=== PATIENT | male | born 1960 | race Caucasian/White ===

== ENCOUNTER 2023-06-08 13:00 | Outpatient (CLI) | payer BC | END 2023-06-08 13:01 | disposition home or self-care (01) | LOC: BICRAD 13:00 | PROVIDERS: ATTEND Student in an Organized Health Care Education/Training Program | DX: M25.551 Pain in right hip (principal); M54.50 Low back pain, unspecified; M41.9 Scoliosis, unspecified; M47.816 Spondylosis without myelopathy or radiculopathy, lumbar region; M16.11 Unilateral primary osteoarthritis, right hip; M25.78 Osteophyte, vertebrae; M51.36 Other intervertebral disc degeneration, lumbar region | CPT/HCPCS: 72100 ==

== ENCOUNTER 2023-06-15 14:47 | Outpatient (CLI) | payer BC ==
[2023-06-15 15:49] LABS: Anion Gap 14 mmol/L (10-20); BUN (Urea Nitrogen) 16 mg/dL (8.4-25.7); Calc. Creatinine Clearance 0 mL/min (70-130); Calcium 9.4 mg/dL (7.8-10.44); Carbon Dioxide 28 mmol/L (22-29); Chloride 103 mmol/L (98-107); Estimated GFR 75; Glucose 131 mg/dL (70-105); Potassium 4.5 mmol/L (3.5-5.1); Sodium 140 mmol/L (136-145)
[2023-06-15 16:01] LABS: #Basophils 0.1 10x3/uL (0.0-0.2); #Eosinphils 0.2 10x3/uL (0.0-0.5); #Monocytes 0.7 10x3/uL (0.0-1.1); #Neutrophils 2.6 10x3/uL (1.5-8.4); %Basophils 1.7 % (0.0-2.0); %Eosinophils 3.2 % (0.0-6.0); %Lymphocytes 31.8 % (18.0-47.0); %Monocytes 13.5 % (0.0-10.0); %Neutrophils 49.6 % (40.0-75.0); Hematocrit 47.1 % (38.8-50.0); Mean Corpuscular Hemoglobin 29.3 pg (27.0-33.0); Mean Corpuscular Volume 86.1 fl (81.2-95.1); Mean Platelet Volume 9.9 fl (7.4-10.4); Platelet Count 285 10x3/uL (150-450); RBC Distribution Width 13.1 % (11.5-14.5); Red Blood Cell (RBC) Count 5.47 10x6/uL (4.32-5.72); White Blood Cell (WBC) Count 5.3 10x3/uL (3.5-10.5)
== END 2023-06-15 14:48 | disposition home or self-care (01) ==
LOC: LABBT 14:47
PROVIDERS: ATTEND Surgery
DX: Z01.818 Encounter for other preprocedural examination (principal); K42.9 Umbilical hernia without obstruction or gangrene
CPT/HCPCS: 80048; 85025; 93005; 93010

== ENCOUNTER 2023-06-23 09:01 | Day surgery (SDC) | payer BC ==
[2023-06-15 15:14] VITALS: BMI 35.5
[2023-06-23] MEDS ORDERED: EPINEPHrine 1 MG/ML VIAL ONE (10:00)
[2023-06-23] MEDS ORDERED: Bupivacaine 0.25% HCL 30 ML VIAL ONE (10:00)
[2023-06-23] MEDS ORDERED: CEFAZOLIN 2 GM VIAL ONE (10:02)
[2023-06-23] MEDS ORDERED: Sodium Chloride 0.9% 100 ML ONE (10:03)
[2023-06-23] MEDS ORDERED: PROPOFOL 20 ML ONE (10:03)
[2023-06-23] MEDS ORDERED: Lidocaine 1% PF 5 ML VIAL ONE (10:04)
[2023-06-23] MEDS ORDERED: Sevoflurane 250 ML INH ANEST BOTTLE ONE (10:07)
[2023-06-23] MEDS ORDERED: Famotidine/PF 20 mg/2ml Vial ONE (10:31)
[2023-06-23] MEDS ORDERED: fentaNYL PF 100 MCG/2 ML SYRINGE ONE (10:33)
[2023-06-23] MEDS ORDERED: Dexamethasone 4 mg/ml Vial ONE (10:52)
[2023-06-23] MEDS ORDERED: Ondansetron PF 4 MG/2 ML Vial ONE (11:08)
[2023-06-23] MEDS ORDERED: Ketorolac Tromethamine 30 MG (1 mL) VIAL ONE (11:09)
== END 2023-06-23 12:45 | disposition home or self-care (01) ==
LOC: SDC 09:01
PROVIDERS: ATTEND Surgery
PROC: 0WUF0JZ Supplement Abdominal Wall with Synthetic Substitute, Open Approach (ICD-10-PCS; principal; 2023-06-23)
DX: K42.9 Umbilical hernia without obstruction or gangrene (principal); K43.9 Ventral hernia without obstruction or gangrene; I10 Essential (primary) hypertension; E78.5 Hyperlipidemia, unspecified; F32.A Depression, unspecified; F41.9 Anxiety disorder, unspecified; Z79.899 Other long term (current) drug therapy
CPT/HCPCS: C1781; J0171; J0665; J1100; J1885; J2405; J2704; J3490; S0028